=== PATIENT | female | born 1950 | race Caucasian/White ===

== ENCOUNTER 2024-07-24 20:29 | Inpatient (IN) | payer OTHER, MEDICAID ==
[~2024-07-24] VITALS: Ht 165.1 cm; Wt 70.3 kg
[2024-07-24 21:29] LABS: BASOPHILS % 0.7 % (0.0-2.0); EOSINOPHILS % 4.1 % (0.0-5.0); HEMATOCRIT. 37.4 % (36.0-48.0); HEMOGLOBIN. 12.6 g/dL (12.0-16.0); LYMPHOCYTES % 10.2 % (20.0-50.0); MEAN CORPUSCULAR HEMOGLOBIN 32.2 pg (28.0-32.0); MEAN CORPUSCULAR HGB CONC 33.8 g/dL (31.0-37.0); MEAN CORPUSCULAR VOLUME 95.2 fL (81.0-99.0); MONOCYTES % 6.8 % (2.0-8.0); NEUTROPHILS % 78.2 % (40.0-76.0); RED BLOOD CELL COUNT 3.93 mill/uL (4.2-5.4); RED CELL DISTRIBUTION WIDTH 14.4 % (11.6-14.6); WHITE BLOOD COUNT 9.2 x1000/uL (4.5-11.0)
[2024-07-24 21:32] LABS: CHLORIDE 100 mEq/L (98-107); POTASSIUM 3.6 mEq/L (3.5-5.1); SODIUM 134 mEq/L (136-145)
[2024-07-24 21:34] LABS: CALCIUM 8.3 mg/dL (8.7-10.4); CARBON DIOXIDE 20 mEq/L (21-32)
[2024-07-24] MEDS: SODIUM CHLORIDE 0.9% 1,000 ML IV ONE ×2 (21:34→23:08)
[2024-07-24 21:39] LABS: CREATININE 2.5 mg/dL (0.6-1.0); UREA NITROGEN BLOOD 31 mg/dL (9-23)
[2024-07-24 21:40] LABS: TROPONIN I HIGH SENSITIVITY 16 ng/L (3.0-34)
[2024-07-24 21:41] LABS: ALANINE AMINOTRANSFERASE 49 IU/L (10-49); ASPARTATE AMINOTRANSFERASE 114 IU/L (<34); BILIRUBIN DIRECT 0.2 mg/dL (<=3.0)
[2024-07-24 21:42] LABS: BILIRUBIN TOTAL 0.5 mg/dL (0.1-1.0); PROTEIN TOTAL 7.5 g/dL (6.0-8.3); PROTHROMBIN TIME 11.4 sec (9.6-11.0)
[2024-07-24 21:49] LABS: GLUCOSE 553 mg/dL (70-105)
[2024-07-24 22:04] LABS: CLARITY URINE CLEAR (CLEAR); COLOR URINE YELLOW (YELLOW); GLUCOSE URINE 3+ (NEGATIVE); KETONES URINE TRACE (NEGATIVE); LEUKOCYTE ESTERASE URINE NEGATIVE (NEGATIVE); NITRITE URINE NEGATIVE (NEGATIVE); OCCULT BLOOD URINE 1+ (NEGATIVE); PH URINE 5.5 (4.5-8.0); PROTEIN URINE 1+ (NEGATIVE); SPECIFIC GRAVITY URINE 1.015 (1.005-1.030)
[2024-07-24 22:13] LABS: DIFFERENTIAL COMMENT 1
[2024-07-24 22:14] LABS: BACTERIA URINE TRACE; SQUAMOUS EPITHELIAL CELL URINE 1+ /lpf (RARE/1+); WBC URINE 0-2 /hpf (0-2)
[2024-07-24 22:16] LABS: BG BASE EXCESS -8.1 mmol/L (-2.0-3.0); BG DEOXYHEMOGLOBIN 8.4 % (0.0-5.0); BG HCO3 ACT 16.7 mmol/L (21.0-28.0); BG OXYGEN SATURATION 91.5 % (94.0-98.0); BG OXYHEMOGLOBIN 90.6 % (94.0-98.0); BG PCO2 32.6 mmHg (32.0-45.0); BG PH 7.328 (7.350-7.450); BG PO2 58.9 mmHg (83.0-108.0); BG SAMPLE SITE RIGHT RADIAL; BG TOTAL HEMOGLOBIN 13.4 g/dL (12.0-16.0); BG VENT MODE ROOM AIR
[2024-07-24 22:42] LABS: MEAN PLATELET VOLUME 8.7 fl (7.4-10.4); PLATELET 140 x1000/uL (130-400)
[2024-07-24] MEDS ORDERED: DEXTROSE 50% WATER 50ML SYRINGE IV PRN (22:45)
[2024-07-24] MEDS: METRONIDAZOLE 500 MG PREMIX 100 ML IV ONE (22:59)
[2024-07-24] MEDS: INSULIN LISPRO 100 UNITS/ML SUBCUT STA (23:00)
[2024-07-25] MEDS: CEFTRIAXONE 2GM/50ML 50 ML IV ONE (00:13)
[2024-07-25] MEDS ORDERED: MAGNESIUM/ALUMINUM HYDROXIDE/SIMETHICONE 30ML UDC PO PRN (01:45)
[2024-07-25] MEDS ORDERED: IPRATROPIUM/ALBUTEROL 0.5-3(2.5)MG/3ML NEB HHN PRN (01:45)
[2024-07-25] MEDS ORDERED: DOCUSATE SODIUM 100MG CAPSULE PO PRN (01:45)
[2024-07-25] MEDS ORDERED: ONDANSETRON HCL 4MG/2ML INJ IV PRN (01:45)
[2024-07-25] MEDS: SODIUM CHLORIDE 0.9% 1,000 ML IV SCH (03:20)
[2024-07-25] MEDS: VANCOMYCIN 1.25GM PMX (XELLIA) 250 ML IV NR (03:38)
[2024-07-25] MEDS ORDERED: PIPERACILLIN/TAZO 3.375G/50ML 50 ML IV SCH (04:00)
[2024-07-25 04:59] VITALS: BP 141/49; PULSE 93; RESP 19; TEMP 36.5292
[2024-07-25] MEDS ORDERED: INSULIN GLARGINE 100 UNITS/ML SUBCUT SCH (05:45)
[2024-07-25] MEDS: INSULIN REGULAR (HUMULIN R) 1000UNITS/10ML VIAL IV NR (06:02)
[2024-07-25] MEDS: BLOOD SUGAR DIAGNOSTIC STRIP TEST SCH ×2 (07:10)
[2024-07-25 08:00] VITALS: BP 111/41; PULSE 88; RESP 17; TEMP 37.61412; O2SAT 95
[2024-07-25] MEDS: PANTOPRAZOLE SODIUM 40 MG/VIAL IV SCH (08:54)
[2024-07-25] MEDS: INSULIN LISPRO 100 UNITS/ML SUBCUT SCH (09:22)
[2024-07-25] MEDS ORDERED: VANCOMYCIN 1.25GM PMX (XELLIA) 250 ML IV NR (11:00)
[2024-07-25 11:20] LABS: BASOPHILS % 0.2 % (0.0-2.0); HEMATOCRIT. 33.9 % (36.0-48.0); HEMOGLOBIN. 11.4 g/dL (12.0-16.0); LYMPHOCYTES % 22.7 % (20.0-50.0); MEAN CORPUSCULAR HEMOGLOBIN 31.7 pg (28.0-32.0); MEAN CORPUSCULAR HGB CONC 33.7 g/dL (31.0-37.0); MEAN CORPUSCULAR VOLUME 93.9 fL (81.0-99.0); MEAN PLATELET VOLUME 8.5 fl (7.4-10.4); MONOCYTES % 6.6 % (2.0-8.0); NEUTROPHILS % 70.5 % (40.0-76.0); PLATELET 117 x1000/uL (130-400); RED BLOOD CELL COUNT 3.61 mill/uL (4.2-5.4); RED CELL DISTRIBUTION WIDTH 14.2 % (11.6-14.6); WHITE BLOOD COUNT 9.7 x1000/uL (4.5-11.0)
[2024-07-25 11:26] LABS: CHLORIDE 106 mEq/L (98-107); SODIUM 139 mEq/L (136-145)
[2024-07-25 11:27] LABS: CALCIUM 7.9 mg/dL (8.7-10.4); CARBON DIOXIDE 18 mEq/L (21-32)
[2024-07-25 11:32] LABS: CREATININE 2.2 mg/dL (0.6-1.0); GLUCOSE 235 mg/dL (70-105); TRIGLYCERIDE 103 mg/dL (0-150); TROPONIN I HIGH SENSITIVITY 21 ng/L (3.0-34); UREA NITROGEN BLOOD 27 mg/dL (9-23)
[2024-07-25 11:33] LABS: LDL CHOLESTEROL 26 mg/dL (5-100)
[2024-07-25 11:34] LABS: CHOLESTEROL 70 mg/dL (<200); HDL CHOLESTEROL 22 mg/dL (>65); PHOSPHORUS 2.4 mg/dL (2.5-4.9)
[2024-07-25 11:36] LABS: T4 FREE 0.96 ng/dL (0.89-1.76); THYROID STIMULATING HORMONE 0.48 uIU/mL (0.55-4.78)
[2024-07-25 12:00] VITALS: BP 100/41; PULSE 81; RESP 17; TEMP 37.28076; O2SAT 97
[2024-07-25] MEDS: PIPERACILLIN/TAZO 3.375G/50ML 50 ML IV SCH (12:24)
[2024-07-25] MEDS: INSULIN GLARGINE 100 UNITS/ML SUBCUT SCH (12:25)
[2024-07-25 14:08] LABS: POTASSIUM 2.8 mEq/L (3.5-5.1)
[2024-07-25] MEDS ORDERED: DEXT 5% WATER + KCL 40MEQ/L 1,000 ML IV ONE (15:00)
[2024-07-25] MEDS ORDERED: POTASSIUM CHLORIDE 30 MEQ in DEXT 5%/0.9% NACL 985 ML IV SCH (15:00)
[2024-07-25 16:00] VITALS: BP 95/30; PULSE 85; RESP 17; TEMP 37.72524; O2SAT 95
[2024-07-25] MEDS: ACETAMINOPHEN 325MG TABLET PO PRN (17:26)
[2024-07-25] MEDS: MAGNESIUM 2 G PREMIX 50 ML IV NR (17:26)
[2024-07-25 18:13] LABS: *AMPHETAMINES SCREEN URINE NEGATIVE (NEGATIVE); *BARBITURATES SCREEN URINE NEGATIVE (NEGATIVE); *BENZODIAZEPINES SCREEN URINE NEGATIVE (NEGATIVE); *COCAINE SCREEN URINE NEGATIVE (NEGATIVE); CANNABINOID URINE SCREEN NEGATIVE (NEGATIVE); METHADONE URINE SCREEN NEGATIVE (NEGATIVE); OPIATES URINE SCREEN NEGATIVE (NEGATIVE); PHENCYCLIDINE URINE SCREEN NEGATIVE (NEGATIVE)
[2024-07-25 18:14] LABS: ECSTASY MDMA SCREEN URINE NEGATIVE (NEGATIVE)
[2024-07-25] MEDS: POTASSIUM PHOSPHATE 20 MMOL in DEXT 5% WATER 243.3333 ML IV NR (18:18)
[2024-07-25] MEDS: POTASSIUM CHLORIDE 40 MEQ in SODIUM CHLORIDE 0.9% 980 ML IV SCH (18:52)
[2024-07-25 20:00] VITALS: PULSE 79; RESP 17; TEMP 36.44736; O2SAT 91
[2024-07-25] MEDS ORDERED: POTASSIUM CHLORIDE 40 MEQ in DEXT 5% WATER 230 ML IV ONE (21:30)
[2024-07-25 21:56] LABS: CHLORIDE 105 mEq/L (98-107); POTASSIUM 3.6 mEq/L (3.5-5.1); SODIUM 137 mEq/L (136-145)
[2024-07-25 21:57] LABS: CALCIUM 7.7 mg/dL (8.7-10.4); CARBON DIOXIDE 20 mEq/L (21-32)
[2024-07-25 22:02] LABS: CREATININE 2.3 mg/dL (0.6-1.0); GLUCOSE 181 mg/dL (70-105); UREA NITROGEN BLOOD 25 mg/dL (9-23)
[2024-07-25 22:04] LABS: PHOSPHORUS 4.7 mg/dL (2.5-4.9)
[2024-07-25] MEDS: SODIUM CHLORIDE 0.9% 1,000 ML IV ONE (22:12)
[2024-07-26] VITALS (8 sets, daily range): BP systolic 82–120; BP diastolic 29–44; PULSE 73–100; RESP 16–18; TEMP 36.22512–37.61412; O2SAT 94–100
[2024-07-26] MEDS: MIDODRINE HCL 5MG TABLET PO NR (00:57)
[2024-07-26] MEDS: KCL 20MEQ/100ML X 2 FOR TOTAL KCL 40MEQ/200ML IV SCH (01:00)
[2024-07-26 05:56] LABS: POTASSIUM 4.4 mEq/L (3.5-5.1)
[2024-07-26 05:57] LABS: CALCIUM 7.7 mg/dL (8.7-10.4)
[2024-07-26 06:02] LABS: CREATININE 2.1 mg/dL (0.6-1.0)
[2024-07-26 06:21] LABS: BASOPHILS % 0.3 % (0.0-2.0); EOSINOPHILS % 0.1 % (0.0-5.0); HEMATOCRIT. 32.6 % (36.0-48.0); LYMPHOCYTES % 19.1 % (20.0-50.0); MEAN CORPUSCULAR HGB CONC 33.9 g/dL (31.0-37.0); MEAN CORPUSCULAR VOLUME 94.4 fL (81.0-99.0); MEAN PLATELET VOLUME 8.8 fl (7.4-10.4); MONOCYTES % 5.3 % (2.0-8.0); NEUTROPHILS % 75.2 % (40.0-76.0); PLATELET 116 x1000/uL (130-400); RED BLOOD CELL COUNT 3.45 mill/uL (4.2-5.4); RED CELL DISTRIBUTION WIDTH 14.2 % (11.6-14.6); WHITE BLOOD COUNT 10.7 x1000/uL (4.5-11.0)
[2024-07-26] MEDS: SODIUM CHLORIDE 0.9% 500 ML IV SCH (06:59)
[2024-07-26] MEDS: GUAIFENESIN-DM 200MG-20MG/10ML UDC PO SCH (17:37)
[2024-07-26] MEDS: VANCOMYCIN 1.25GM PMX (XELLIA) 250 ML IV NR (17:50)
[2024-07-26] MEDS ORDERED: GADOTERATE MEGLUMINE 5 MMOL/10 ML VIAL IV ONE (18:40)
[2024-07-27] VITALS (11 sets, daily range): BP systolic 92–129; BP diastolic 27–69; PULSE 69–91; RESP 14–20; TEMP 36.28068–37.11408; O2SAT 93–99
[2024-07-27] MEDS: IPRATROPIUM/ALBUTEROL 0.5-3(2.5)MG/3ML NEB HHN SCH (00:07)
[2024-07-27] MEDS: GUAIFENESIN 200MG/10ML SUGAR FREE UDC PO PRN (05:13)
[2024-07-27] MEDS: PIPERACILLIN/TAZO 3.375G/50ML IV SCH (14:39)
[2024-07-28] VITALS: BP 135/50; PULSE 89; RESP 18; TEMP 36.28068; O2SAT 96
[2024-07-28 04:00] VITALS: BP 174/72; PULSE 94; RESP 19; TEMP 36.28068; O2SAT 97
[2024-07-28 05:41] LABS: CHLORIDE 107 mEq/L (98-107); POTASSIUM 3.4 mEq/L (3.5-5.1); SODIUM 140 mEq/L (136-145)
[2024-07-28 05:42] LABS: CALCIUM 9.1 mg/dL (8.7-10.4); CARBON DIOXIDE 21 mEq/L (21-32)
[2024-07-28 05:46] LABS: BASOPHILS % 0.4 % (0.0-2.0); EOSINOPHILS % 0.2 % (0.0-5.0); HEMATOCRIT. 35.7 % (36.0-48.0); HEMOGLOBIN. 12.7 g/dL (12.0-16.0); LYMPHOCYTES % 25.8 % (20.0-50.0); MEAN CORPUSCULAR HEMOGLOBIN 32.5 pg (28.0-32.0); MEAN CORPUSCULAR HGB CONC 35.5 g/dL (31.0-37.0); MEAN CORPUSCULAR VOLUME 91.5 fL (81.0-99.0); MEAN PLATELET VOLUME 8.8 fl (7.4-10.4); MONOCYTES % 9.1 % (2.0-8.0); NEUTROPHILS % 64.5 % (40.0-76.0); PLATELET 140 x1000/uL (130-400); WHITE BLOOD COUNT 6.6 x1000/uL (4.5-11.0)
[2024-07-28 05:47] LABS: CREATININE 1.8 mg/dL (0.6-1.0); GLUCOSE 119 mg/dL (70-105); UREA NITROGEN BLOOD 14 mg/dL (9-23)
[2024-07-28] MEDS: CLONIDINE 0.1MG TABLET PO PRN (06:08)
[2024-07-28 12:00] VITALS: BP 153/60; PULSE 80; RESP 20; TEMP 36.114; O2SAT 96
[2024-07-28] MEDS: INSULIN LISPRO 100 UNITS/ML SUBCUT SCH (15:00)
[2024-07-28] MEDS: POTASSIUM CHLORIDE 20MEQ/PACKET PO NR ×2 (15:20→17:15)
[2024-07-28 16:00] VITALS: BP 123/66; PULSE 84; RESP 20; TEMP 36.89184; O2SAT 96
[2024-07-28] MEDS: VANCOMYCIN 1G PREMIX 200 ML IV SCH (17:15)
[2024-07-28 20:00] VITALS: BP 149/60; PULSE 84; RESP 18; TEMP 36.33624; O2SAT 98
[2024-07-29] VITALS: BP 158/71; PULSE 89; RESP 18; TEMP 36.44736; O2SAT 98
[2024-07-29 04:00] VITALS: BP 149/59; PULSE 88; RESP 19; TEMP 37.11408; O2SAT 96
[2024-07-29 08:00] VITALS: BP 142/60; PULSE 89; RESP 18; TEMP 35.89176; O2SAT 98
[2024-07-29] MEDS: FAMOTIDINE 20MG/2ML VIAL IV SCH (08:02)
[2024-07-29 13:51] LABS: CARBON DIOXIDE 20 mEq/L (21-32); CHLORIDE 104 mEq/L (98-107); POTASSIUM 3.2 mEq/L (3.5-5.1); SODIUM 138 mEq/L (136-145)
[2024-07-29 13:56] LABS: CREATININE 1.4 mg/dL (0.6-1.0); GLUCOSE 105 mg/dL (70-105)
[2024-07-29 13:57] LABS: UREA NITROGEN BLOOD 8 mg/dL (9-23)
[2024-07-29 13:58] LABS: ALANINE AMINOTRANSFERASE 27 IU/L (10-49); ALBUMIN 4.1 g/dL (3.2-4.8); ASPARTATE AMINOTRANSFERASE 61 IU/L (<34)
[2024-07-29 13:59] LABS: BASOPHILS % 0.4 % (0.0-2.0); BILIRUBIN TOTAL 0.8 mg/dL (0.1-1.0); EOSINOPHILS % 0.3 % (0.0-5.0); HEMATOCRIT. 38.7 % (36.0-48.0); HEMOGLOBIN. 13.2 g/dL (12.0-16.0); LYMPHOCYTES % 26.7 % (20.0-50.0); MEAN CORPUSCULAR HEMOGLOBIN 31.5 pg (28.0-32.0); MEAN CORPUSCULAR HGB CONC 34.1 g/dL (31.0-37.0); MEAN CORPUSCULAR VOLUME 92.4 fL (81.0-99.0); MEAN PLATELET VOLUME 8.4 fl (7.4-10.4); MONOCYTES % 9.4 % (2.0-8.0); NEUTROPHILS % 63.2 % (40.0-76.0); PLATELET 199 x1000/uL (130-400); PROTEIN TOTAL 7.8 g/dL (6.0-8.3); RED BLOOD CELL COUNT 4.19 mill/uL (4.2-5.4); RED CELL DISTRIBUTION WIDTH 13.8 % (11.6-14.6); WHITE BLOOD COUNT 5.6 x1000/uL (4.5-11.0)
[2024-07-29 14:06] LABS: PROTHROMBIN TIME 11.6 sec (9.6-11.0)
[2024-07-29] MEDS: POTASSIUM CHLORIDE 20MEQ/PACKET PO NR (14:22)
[2024-07-29 14:41] LABS: PHOSPHORUS 1.6 mg/dL (2.5-4.9)
[2024-07-29] MEDS ORDERED: CEFTRIAXONE 2GM/50ML 50 ML IV SCH (17:00)
== END 2024-07-29 16:25 | disposition left against medical advice (07) | DRG 871 ==
LOC: ER 20:29 → 8WST 23:14 → EDBEDREQ 23:15 → EDBEDREQTM 23:15
PROVIDERS: ADMIT Internal Medicine; ATTEND Internal Medicine
DX: A41.9 Sepsis, unspecified organism (principal); G06.1 Intraspinal abscess and granuloma; E87.20 Acidosis, unspecified; N17.9 Acute kidney failure, unspecified; M46.26 Osteomyelitis of vertebra, lumbar region; K80.00 Calculus of gallbladder with acute cholecystitis without obstruction; Z53.29 Procedure and treatment not carried out because of patient's decision for other reasons; E78.5 Hyperlipidemia, unspecified; J11.1 Influenza due to unidentified influenza virus with other respiratory manifestations; K76.0 Fatty (change of) liver, not elsewhere classified; E11.22 Type 2 diabetes mellitus with diabetic chronic kidney disease; M46.46 Discitis, unspecified, lumbar region; R33.9 Retention of urine, unspecified; K82.8 Other specified diseases of gallbladder; N18.9 Chronic kidney disease, unspecified; I12.9 Hypertensive chronic kidney disease with stage 1 through stage 4 chronic kidney disease, or unspecified chronic kidney disease; Z79.899 Other long term (current) drug therapy; Z79.4 Long term (current) use of insulin; W18.39XA Other fall on same level, initial encounter; Y93.89 Activity, other specified; Y92.89 Other specified places as the place of occurrence of the external cause; Y99.8 Other external cause status
CPT/HCPCS: 36415; 36600; 71045; 72148; 74176; 76700; 78227; 80048; 80053; 80061; 80076; 80202; 80305; 81003; 82010; 82375; 82805; 82962; 83036; 83605; 83735; 83880; 84100; 84145; 84439; 84443; 84484; 85025; 85651; 86850; 86900; 87426; 87804; 93005; 93970; 94640; 97162; 97166; 99291; A9500; A9537; A9577; J0696; J1815; J2470; J2543; J3370; J3475; J3480; J3490; J7030; J7060